=== PATIENT | male | born 1930 | race Hispanic/Latino ===

== ENCOUNTER 2017-11-01 10:21 | Emergency (ER) | payer MEDICARE ==
[2017-11-01 10:41] LABS: BASOPHILS % (AUTO) 0.5 % (0.0-5.0); EOSINOPHILS % (AUTO) 6.3 % (0.0-8.0); HEMATOCRIT 34.3 % (42-54); LYMPHOCYTES % (AUTO) 26.8 % (21.0-51.0); MEAN CORPUSCULAR HEMOGLOBIN 29.9 pg (27.0-33.0); MEAN CORPUSCULAR HGB CONC 34.6 g/dL (32.0-36.0); MEAN CORPUSCULAR VOLUME 86.5 fL (79-99); MONOCYTES % (AUTO) 9.2 % (3.0-13.0); NEUTROPHILS % (AUTO) 57.2 % (40.0-77.0); PLATELET COUNT (AUTO) 267 K/uL (130-400); RED BLOOD CELL COUNT(AUTO) 3.96 MIL/uL (4.50-6.20); RED CELL DISTRIBUTION WIDTH 13.8 % (11.0-15.5); WHITE BLOOD COUNT (AUTO) 6.3 K/uL (4.8-10.8)
[2017-11-01 10:48] LABS: CREATININE 1.4 mg/dL (0.5-1.5); POTASSIUM 4.4 mmol/L (3.5-5.1)
[2017-11-01 10:52] LABS: INR 0.95 (0.85-1.15); PARTIAL THROMBOPLASTIN TIME 29.8 SEC (26.3-35.5)
[2017-11-01 10:53] LABS: ALBUMIN 3.2 g/dL (3.5-5.0); BILIRUBIN,TOTAL 0.4 mg/dL (0.2-1.0); TOTAL PROTEIN, SERUM 6.5 g/dL (6.0-8.3)
[2017-11-01 11:49] LABS: APPEARANCE,URINE Clear (CLEAR); BILIRUBIN,URINE Negative (NEGATIVE); COLOR,URINE Yellow (YELLOW); GLUCOSE, URINE (UA) Negative (NEGATIVE); KETONES,URINE Negative (NEGATIVE); LEUKOCYTE ESTERASE ,URINE Negative (NEGATIVE); NITRATE,URINE Negative (NEGATIVE); OCCULT BLOOD,URINE Negative (NEGATIVE); PROTEIN,URINE Negative (NEGATIVE); UROBILINOGEN,URINE 0.2 mg/dL (0.2-1.0)
[2017-11-01] MEDS ORDERED: FUROSEMIDE 10 MG/ML 4ML VIAL ONE (12:44)
[2017-11-01] MEDS ORDERED: METHYLPREDNISOLONE SOD SUCC 40MG/ML 1ML ONE (12:44)
[2017-11-01] MEDS ORDERED: IPRATROPIUM/ALBUTEROL SULFATE 3 ML SOLUTION IH ONE (12:45)
[2017-11-01 13:02] LABS: CREATINE KINASE MB 1.4 ng/mL (0.5-3.6)
== END 2017-11-01 17:08 | disposition home or self-care (01) ==
LOC: EDH 10:21
DX: I11.0 Hypertensive heart disease with heart failure (principal); I50.43 Acute on chronic combined systolic (congestive) and diastolic (congestive) heart failure; J44.9 Chronic obstructive pulmonary disease, unspecified; F10.10 Alcohol abuse, uncomplicated; Z87.891 Personal history of nicotine dependence
CPT/HCPCS: 36415; 70450; 71045; 80053; 81003; 82550; 82553; 83880; 84484 ×2; 85025; 85610; 85730; 87804 ×2; 93005 ×2; 94640; 96374; 96375; 99285; J1940; J2920

== ENCOUNTER 2017-11-27 15:21 | Inpatient (IN) | payer MEDICARE ==
[~2017-11-27] VITALS: Ht 165.1 cm; Wt 80.8 kg
[2017-11-27 15:54] LABS: BASOPHILS % (AUTO) 0.5 % (0.0-5.0); EOSINOPHILS % (AUTO) 1.4 % (0.0-8.0); HEMATOCRIT 33.5 % (42-54); LYMPHOCYTES % (AUTO) 10.9 % (21.0-51.0); MEAN CORPUSCULAR HEMOGLOBIN 29.2 pg (27.0-33.0); MEAN CORPUSCULAR HGB CONC 33.9 g/dL (32.0-36.0); MEAN CORPUSCULAR VOLUME 86.2 fL (79-99); MONOCYTES % (AUTO) 7.7 % (3.0-13.0); NEUTROPHILS % (AUTO) 79.5 % (40.0-77.0); PLATELET COUNT (AUTO) 204 K/uL (130-400); RED BLOOD CELL COUNT(AUTO) 3.88 MIL/uL (4.50-6.20); RED CELL DISTRIBUTION WIDTH 14.6 % (11.0-15.5); WHITE BLOOD COUNT (AUTO) 8.7 K/uL (4.8-10.8)
[2017-11-27 16:09] LABS: PARTIAL THROMBOPLASTIN TIME 31.3 SEC (26.3-35.5); POTASSIUM 4.9 mmol/L (3.5-5.1); PROTHROMBIN TIME 10.5 SEC (9.6-11.6)
[2017-11-27 16:14] LABS: ALBUMIN 3.5 g/dL (3.5-5.0); BILIRUBIN,TOTAL 0.9 mg/dL (0.2-1.0)
[2017-11-27 16:15] LABS: B-TYPE NATRIURETIC PEPTIDE 752 pg/mL (0-100)
[2017-11-27] MEDS ORDERED: IPRATROPIUM/ALBUTEROL SULFATE 3 ML SOLUTION IH ONE (16:17)
[2017-11-27 16:23] LABS: AMYLASE 61 U/L (25-115); CREATINE KINASE MB 1.8 ng/mL (0.5-3.6); CREATINE KINASE, TOTAL 79 U/L (21-232)
[2017-11-27 16:24] LABS: ALCOHOL, BLOOD < 3 mg/dL (0-10)
[2017-11-27] MEDS ORDERED: ACETAMINOPHEN 325 MG TAB PO PRN ×2 (16:45)
[2017-11-27] MEDS ORDERED: LACTULOSE 20 GM/30 ML UDCUP PO PRN (16:45)
[2017-11-27] MEDS ORDERED: ONDANSETRON HCL 4 MG/2 ML VIAL IV PRN (16:45)
[2017-11-27] MEDS: FUROSEMIDE 10 MG/ML 4ML VIAL IV SCH (16:45)
[2017-11-27] MEDS ORDERED: MAG HYDROX/AL HYDROX/SIMETH ES 30 ML SUSP UDCUP PO PRN (16:45)
[2017-11-27] MEDS ORDERED: METHYLPREDNISOLONE SOD SUCC 125MG/2ML VIAL ONE (16:47)
[2017-11-27] MEDS ORDERED: FUROSEMIDE 10 MG/ML 4ML VIAL ONE (16:47)
[2017-11-27] MEDS ORDERED: THIAMINE HCL 100 MG/ML 2ML VIAL ONE (16:47)
[2017-11-27] MEDS: ALBUTEROL SULFATE 0.083% 2.5 MG/3 ML INH IH SCH ×2 (20:04→22:34)
[2017-11-27 21:25] VITALS: BP 143/62
[2017-11-27] MEDS ORDERED: HYDR12.530 PO (22:14)
[2017-11-27] MEDS ORDERED: BUSP15 PO (22:14)
[2017-11-27] MEDS ORDERED: AMLO1CAP10 PO (22:14)
[2017-11-27] MEDS ORDERED: DOCU100T PO (22:14)
[2017-11-28] VITALS (7 sets, daily range): BP systolic 111–125; BP diastolic 52–65
[2017-11-28] MEDS ORDERED: HYDRALAZINE HCL 20 MG/ML VIAL IV PRN (00:45)
[2017-11-28] MEDS ORDERED: POTASSIUM CHLORIDE 10% ELIXIR 20 MEQ/15 ML UDCUP PO PRN (00:45)
[2017-11-28] MEDS ORDERED: MORPHINE SULFATE 2 MG/ML 1ML SYG IVP PRN ×2 (00:45)
[2017-11-28] MEDS ORDERED: LIDOCAINE HCL-MPF 1% 2ML VIAL IVP PRN (00:45)
[2017-11-28] MEDS ORDERED: LORAZEPAM 2 MG/ML 1 ML VIAL IVP PRN (00:45)
[2017-11-28] MEDS ORDERED: POTASSIUM CHLORIDE 20MEQ/100ML 100 ML IV PRN (00:45)
[2017-11-28] MEDS ORDERED: LEVOFLOXACIN 500 MG/D5W 100 ML 100 ML IV SCH (01:00)
[2017-11-28 01:14] LABS: CREATINE KINASE MB 4.3 ng/mL (0.5-3.6); TROPONIN I 0.54 ng/mL (0.00-0.06)
[2017-11-28] MEDS: NITROGLYCERIN 1GM/1 INCH PACKET TD SCH ×3 (01:41→16:45)
[2017-11-28] MEDS: ALBUTEROL SULFATE 0.083% 2.5 MG/3 ML INH IH SCH ×6 (01:47→22:26)
[2017-11-28 04:30] LABS: CREATININE 2.2 mg/dL (0.5-1.5); HEMATOCRIT 29.9 % (42-54); LYMPHOCYTES % (AUTO) 1.8 % (21.0-51.0); MEAN CORPUSCULAR HEMOGLOBIN 29.7 pg (27.0-33.0); MEAN CORPUSCULAR HGB CONC 34.5 g/dL (32.0-36.0); MEAN CORPUSCULAR VOLUME 86.3 fL (79-99); MONOCYTES % (AUTO) 0.8 % (3.0-13.0); NEUTROPHILS % (AUTO) 97.4 % (40.0-77.0); PLATELET COUNT (AUTO) 187 K/uL (130-400); POTASSIUM 4.7 mmol/L (3.5-5.1); RED BLOOD CELL COUNT(AUTO) 3.47 MIL/uL (4.50-6.20); RED CELL DISTRIBUTION WIDTH 14.9 % (11.0-15.5); WHITE BLOOD COUNT (AUTO) 6.7 K/uL (4.8-10.8)
[2017-11-28] MEDS: FUROSEMIDE 10 MG/ML 4ML VIAL IV SCH ×2 (05:03→17:53)
[2017-11-28 05:04] LABS: B-TYPE NATRIURETIC PEPTIDE 1130 pg/mL (0-100)
[2017-11-28 07:32] LABS: CREATINE KINASE MB 8.1 ng/mL (0.5-3.6)
[2017-11-28 07:35] LABS: TROPONIN I 0.75 ng/mL (0.00-0.06)
[2017-11-28] MEDS: ASPIRIN 325 MG TABLET PO SCH (08:59)
[2017-11-28] MEDS: METOPROLOL TARTRATE 25 MG TAB PO SCH ×2 (08:59→20:36)
[2017-11-28] MEDS: ENOXAPARIN SODIUM 30 MG/0.3 ML SQ SCH (09:00)
[2017-11-28] MEDS: FAMOTIDINE/PF 20 MG/2 ML VIAL IV SCH (09:00)
[2017-11-28] MEDS: GUAIFENESIN-DM 200/20 MG 10 ML PO PRN ×2 (10:46→22:09)
[2017-11-28] MEDS: BUSPIRONE HCL 5 MG TABLET PO SCH (20:36)
[2017-11-29] MEDS: NITROGLYCERIN 1GM/1 INCH PACKET TD SCH ×3 (00:25→16:45)
[2017-11-29] MEDS: ALBUTEROL SULFATE 0.083% 2.5 MG/3 ML INH IH SCH ×6 (01:49→21:39)
[2017-11-29 03:25] VITALS: BP 112/54
[2017-11-29 03:38] LABS: APPEARANCE,URINE Clear (CLEAR); BILIRUBIN,URINE Negative (NEGATIVE); COLOR,URINE Yellow (YELLOW); GLUCOSE, URINE (UA) Negative (NEGATIVE); KETONES,URINE Negative (NEGATIVE); LEUKOCYTE ESTERASE ,URINE Negative (NEGATIVE); NITRATE,URINE Negative (NEGATIVE); OCCULT BLOOD,URINE Negative (NEGATIVE); PROTEIN,URINE Negative (NEGATIVE); UROBILINOGEN,URINE 0.2 mg/dL (0.2-1.0)
[2017-11-29] MEDS: FUROSEMIDE 10 MG/ML 4ML VIAL IV SCH ×2 (04:37→16:52)
[2017-11-29 05:11] LABS: BASOPHILS % (AUTO) 0.1 % (0.0-5.0); HEMATOCRIT 30.1 % (42-54); LYMPHOCYTES % (AUTO) 4.2 % (21.0-51.0); MEAN CORPUSCULAR HEMOGLOBIN 28.9 pg (27.0-33.0); MEAN CORPUSCULAR HGB CONC 33.8 g/dL (32.0-36.0); MEAN CORPUSCULAR VOLUME 85.6 fL (79-99); MONOCYTES % (AUTO) 5.7 % (3.0-13.0); PLATELET COUNT (AUTO) 204 K/uL (130-400); RED BLOOD CELL COUNT(AUTO) 3.51 MIL/uL (4.50-6.20); RED CELL DISTRIBUTION WIDTH 14.5 % (11.0-15.5); WHITE BLOOD COUNT (AUTO) 9.5 K/uL (4.8-10.8)
[2017-11-29 05:17] LABS: CREATININE 2.1 mg/dL (0.5-1.5); POTASSIUM 4.4 mmol/L (3.5-5.1)
[2017-11-29 05:22] LABS: B-TYPE NATRIURETIC PEPTIDE 901 pg/mL (0-100)
[2017-11-29 08:00] VITALS: BP 107/54
[2017-11-29] MEDS: ENOXAPARIN SODIUM 30 MG/0.3 ML SQ SCH (09:00)
[2017-11-29] MEDS: METOPROLOL TARTRATE 25 MG TAB PO SCH ×2 (09:11→19:52)
[2017-11-29] MEDS: BUSPIRONE HCL 5 MG TABLET PO SCH ×2 (09:11→19:52)
[2017-11-29] MEDS: ASPIRIN 325 MG TABLET PO SCH (09:11)
[2017-11-29] MEDS: FAMOTIDINE/PF 20 MG/2 ML VIAL IV SCH (09:12)
[2017-11-29] MEDS: DOCUSATE NA 100MG/10ML UDCUP PO SCH (10:04)
[2017-11-29 11:00] VITALS: BP 114/57
[2017-11-29] MEDS: METOLAZONE 2.5 MG TABLET PO SCH (14:24)
[2017-11-29 16:00] VITALS: BP 117/51
[2017-11-29 19:30] VITALS: BP 109/57
[2017-11-29 23:20] VITALS: BP 122/60
[2017-11-30] MEDS: NITROGLYCERIN 1GM/1 INCH PACKET TD SCH ×3 (01:01→16:45)
[2017-11-30] MEDS: ALBUTEROL SULFATE 0.083% 2.5 MG/3 ML INH IH SCH ×6 (01:26→22:18)
[2017-11-30 03:25] VITALS: BP 115/60
[2017-11-30] MEDS: FUROSEMIDE 10 MG/ML 4ML VIAL IV SCH ×2 (04:42→18:25)
[2017-11-30 06:07] LABS: BASOPHILS % (AUTO) 0.3 % (0.0-5.0); EOSINOPHILS % (AUTO) 3.4 % (0.0-8.0); HEMATOCRIT 32.7 % (42-54); LYMPHOCYTES % (AUTO) 7.8 % (21.0-51.0); MEAN CORPUSCULAR HEMOGLOBIN 29.6 pg (27.0-33.0); MEAN CORPUSCULAR HGB CONC 34.6 g/dL (32.0-36.0); MEAN CORPUSCULAR VOLUME 85.5 fL (79-99); MONOCYTES % (AUTO) 7.7 % (3.0-13.0); NEUTROPHILS % (AUTO) 80.8 % (40.0-77.0); PLATELET COUNT (AUTO) 252 K/uL (130-400); RED BLOOD CELL COUNT(AUTO) 3.82 MIL/uL (4.50-6.20); RED CELL DISTRIBUTION WIDTH 14.9 % (11.0-15.5); WHITE BLOOD COUNT (AUTO) 12.2 K/uL (4.8-10.8)
[2017-11-30 06:16] LABS: CREATININE 1.8 mg/dL (0.5-1.5); POTASSIUM 4.2 mmol/L (3.5-5.1)
[2017-11-30 06:28] LABS: % IRON SATURATION 4.9 % (30-44)
[2017-11-30 06:45] LABS: B-TYPE NATRIURETIC PEPTIDE 1410 pg/mL (0-100)
[2017-11-30 07:59] VITALS: BP 144/69
[2017-11-30] MEDS: FAMOTIDINE/PF 20 MG/2 ML VIAL IV SCH (11:19)
[2017-11-30] MEDS: METOPROLOL TARTRATE 25 MG TAB PO SCH ×2 (11:20→20:19)
[2017-11-30] MEDS: ASPIRIN 325 MG TABLET PO SCH (11:20)
[2017-11-30] MEDS: GUAIFENESIN-DM 200/20 MG 10 ML PO PRN (11:21)
[2017-11-30] MEDS: DOCUSATE NA 100MG/10ML UDCUP PO SCH (11:22)
[2017-11-30] MEDS: BUSPIRONE HCL 5 MG TABLET PO SCH ×2 (11:22→20:19)
[2017-11-30] MEDS: METOLAZONE 2.5 MG TABLET PO SCH (11:23)
[2017-11-30] MEDS: ENOXAPARIN SODIUM 30 MG/0.3 ML SQ SCH (11:33)
[2017-11-30 11:37] VITALS: BP 133/65
[2017-11-30 16:00] VITALS: BP 114/51
[2017-11-30 20:00] VITALS: BP 140/81
[2017-11-30 23:52] VITALS: BP 114/61
[2017-12-01] MEDS: NITROGLYCERIN 1GM/1 INCH PACKET TD SCH (00:56)
[2017-12-01] MEDS: ALBUTEROL SULFATE 0.083% 2.5 MG/3 ML INH IH SCH ×4 (02:24→13:37)
[2017-12-01 04:00] VITALS: BP 119/63
[2017-12-01 04:22] LABS: CREATININE 1.9 mg/dL (0.5-1.5); POTASSIUM 3.4 mmol/L (3.5-5.1)
[2017-12-01] MEDS: FUROSEMIDE 10 MG/ML 4ML VIAL IV SCH (05:00)
[2017-12-01] MEDS: POTASSIUM CHLORIDE 20 MEQ ERTAB PO PRN ×2 (05:01→09:22)
[2017-12-01 08:00] VITALS: BP 120/68
[2017-12-01] MEDS: ASPIRIN 325 MG TABLET PO SCH (09:00)
[2017-12-01] MEDS: FAMOTIDINE/PF 20 MG/2 ML VIAL IV SCH (09:00)
[2017-12-01] MEDS: METOPROLOL TARTRATE 25 MG TAB PO SCH (09:02)
[2017-12-01] MEDS: BUSPIRONE HCL 5 MG TABLET PO SCH (09:03)
[2017-12-01] MEDS: ENOXAPARIN SODIUM 30 MG/0.3 ML SQ SCH (09:11)
[2017-12-01] MEDS: DOCUSATE NA 100MG/10ML UDCUP PO SCH (09:15)
[2017-12-01] MEDS: METOLAZONE 2.5 MG TABLET PO SCH (09:35)
[2017-12-01] MEDS ORDERED: FURO40TA7 PO (10:44)
[2017-12-01 11:55] VITALS: BP 109/58
== END 2017-12-01 15:00 | disposition home or self-care (01) | DRG 291 ==
LOC: EDH 15:21 → EDHIP 16:41 → OBSVTOIN 16:41 → 3BH 19:40
PROVIDERS: ADMIT Family Medicine; ATTEND Family Medicine
DX: I13.0 Hypertensive heart and chronic kidney disease with heart failure and stage 1 through stage 4 chronic kidney disease, or unspecified chronic kidney disease (principal); I50.43 Acute on chronic combined systolic (congestive) and diastolic (congestive) heart failure; N17.9 Acute kidney failure, unspecified; E11.22 Type 2 diabetes mellitus with diabetic chronic kidney disease; J44.1 Chronic obstructive pulmonary disease with (acute) exacerbation; I08.1 Rheumatic disorders of both mitral and tricuspid valves; F10.20 Alcohol dependence, uncomplicated; I25.10 Atherosclerotic heart disease of native coronary artery without angina pectoris; D64.9 Anemia, unspecified; R74.8 Abnormal levels of other serum enzymes; N18.9 Chronic kidney disease, unspecified; Z91.14 Patient's other noncompliance with medication regimen; Z28.21 Immunization not carried out because of patient refusal; Z87.891 Personal history of nicotine dependence
CPT/HCPCS: 36415; 71045; 73070; 76700; 80048; 80053; 80061; 81003; 82150; 82550; 82553; 83540; 83550; 83874; 83880; 84484; 85025; 85610; 85730; 93005; 93306; 94640; 94664; 99291; G0480; J1650; J1940; J1956; J2930; J3411; J3490

== ENCOUNTER 2019-05-25 19:02 | Emergency (ER) | payer MEDICARE ==
[~2019-05-25 19:02] MED LIST: AMLO1CAP14 PO; BUSP15 PO; DOCU100T PO; FURO40TA7 PO
[2019-05-25 19:42] LABS: EOSINOPHILS % (AUTO) 5.3 % (0.0-8.0); HEMATOCRIT 34.5 % (42-54); LYMPHOCYTES % (AUTO) 27.8 % (21.0-51.0); MEAN CORPUSCULAR HEMOGLOBIN 31.8 pg (27.0-33.0); MEAN CORPUSCULAR HGB CONC 34.2 g/dL (32.0-36.0); MEAN CORPUSCULAR VOLUME 93.1 fL (79-99); MONOCYTES % (AUTO) 9.8 % (3.0-13.0); NEUTROPHILS % (AUTO) 56.1 % (40.0-77.0); PLATELET COUNT (AUTO) 150 K/uL (130-400); RED BLOOD CELL COUNT(AUTO) 3.71 MIL/uL (4.50-6.20); RED CELL DISTRIBUTION WIDTH 16.2 % (11.0-15.5); WHITE BLOOD COUNT (AUTO) 5.4 K/uL (4.8-10.8)
[2019-05-25 19:50] LABS: CREATININE 1.6 mg/dL (0.5-1.5); POTASSIUM 5.5 mmol/L (3.5-5.1)
== END 2019-05-25 21:09 | disposition home or self-care (01) ==
LOC: EDH 19:02
DX: R60.0 Localized edema (principal); E87.70 Fluid overload, unspecified; I13.0 Hypertensive heart and chronic kidney disease with heart failure and stage 1 through stage 4 chronic kidney disease, or unspecified chronic kidney disease; N18.3 Chronic kidney disease, stage 3 (moderate); I50.9 Heart failure, unspecified; F10.10 Alcohol abuse, uncomplicated; Z87.891 Personal history of nicotine dependence
CPT/HCPCS: 36415; 80048; 85025; 93005